=== PATIENT | female | born 1940 | race Caucasian/White ===

== ENCOUNTER → 2022-01-07 | Outpatient (CLI) | payer MEDICARE, OTHER ==
[~2022-01-07] MED LIST: BEBTELOVIMAB (EUA) 175 MG/2 ML VIAL IV ONE; SODIUM CHLORIDE 0.9% 500 ML 500 ML in EMPTY BAG 1 BAG IV PRN
[2022-01-07 13:26] VITALS: RESP 18; TEMP 97.7
[2022-01-07 14:27] VITALS: BP 114/79; PULSE 58
== END ==
LOC: PROCWHC3 12:57
PROVIDERS: ATTEND Physician Assistant
DX: U07.1 COVID-19 (principal); Z88.2 Allergy status to sulfonamides
CPT/HCPCS: Q0222; M0222; 96374